=== PATIENT | female | born 1995 | race Caucasian/White ===

== ENCOUNTER 2018-07-07 11:45 | Emergency (ER) | payer OTHER ==
--- NOTE | 2018-07-09 19:51 | EKG ---
Test Reason : Blood Pressure : / mmHG Vent. Rate : 068 BPM Atrial Rate : 068 BPM P-R Int : 166 ms QRS Dur : 074 ms QT Int : 378 ms P-R-T Axes : 059 031 057 degrees QTc Int : 401 ms Normal sinus rhythm Normal ECG Confirmed by GARRISON LUNDY D.O. ([id number]), publishing editor LEONELA ASH ([id number]) on 07/09/2018 7:51:14 PM Referred By: Confirmed By:GARRISON LUNDY D.O.
== END 2018-07-07 12:43 | disposition home or self-care (01) ==
LOC: ERS 11:45
DX: R56.9 Unspecified convulsions (principal)
CPT/HCPCS: 93005; 94760